=== PATIENT | female | born 1950 | race Caucasian/White ===

== ENCOUNTER 2021-05-01 10:43 | Outpatient (CLI) | payer MEDICARE | END 2021-05-01 10:44 | disposition home or self-care (01) | LOC: CSHMAMMO 10:43 | PROVIDERS: ATTEND Family Medicine | DX: Z12.31 Encounter for screening mammogram for malignant neoplasm of breast (principal) | CPT/HCPCS: 77063; 77067 ==

== ENCOUNTER 2022-05-28 09:53 | Outpatient (CLI) | payer MEDICARE | END 2022-05-28 09:54 | disposition home or self-care (01) | LOC: CSHMAMMO 09:53 | PROVIDERS: ATTEND Family Medicine | DX: Z12.31 Encounter for screening mammogram for malignant neoplasm of breast (principal) | CPT/HCPCS: 77063; 77067 ==

== ENCOUNTER 2023-05-27 13:36 | Outpatient (CLI) | payer MEDICARE | END 2023-05-27 13:37 | disposition home or self-care (01) | LOC: CSHULT 13:36 | PROVIDERS: ATTEND Family Medicine | DX: R01.1 Cardiac murmur, unspecified (principal); I51.9 Heart disease, unspecified | CPT/HCPCS: 93306 ==

== ENCOUNTER 2023-06-12 11:51 | Outpatient (CLI) | payer MEDICARE | END 2023-06-12 11:52 | disposition home or self-care (01) | LOC: CSHMAMMO 11:51 | PROVIDERS: ATTEND Family Medicine | DX: Z12.31 Encounter for screening mammogram for malignant neoplasm of breast (principal) | CPT/HCPCS: 77063; 77067 ==